=== PATIENT | male | born 1970 | race Caucasian/White ===

== ENCOUNTER 2016-12-01 12:08 | Emergency (ER) | payer MEDICARE, OTHER ==
[2016-12-01 12:19] VITALS: BP 128/78
--- NOTE | 2016-12-01 12:37 | ER Document Report ---
ED Medical Screen (RME) - General Stated Complaint: EAR PAIN Notes: Patient complains of left ear aching and ringing. Had sinus infection about 2 weeks ago and this is when symptoms started, but have progressively gotten worse. He has a history of tinnitus. States left ear feels like it has pressure in it and the ringing has become unbearable. Patient says he tried Debrox because he has had a history of impacted cerumen. I have greeted and performed a rapid initial assessment of this patient. A comprehensive ED assessment and evaluation of the patient, analysis of test results and completion of the medical decision making process will be conducted by additional ED providers. TRAVEL OUTSIDE OF THE [place] IN LAST 30 DAYS: No - Related Data Allergies/Adverse Reactions: No Known Allergies Allergy (Verified 12/16/14 11:11) Past Medical History - Past Medical History Cardiac Medical History: Denies: Hx Coronary Artery Disease, Hx Heart Attack, Hx Hypertension Pulmonary Medical History: Reports: Hx Asthma Denies: Hx Bronchitis, Hx COPD, Hx Pneumonia Neurological Medical History: Denies: Hx Cerebrovascular Accident, Hx Seizures GI Medical History: Reports: Hx Gastroesophageal Reflux Disease Musculoskeltal Medical History: Denies Hx Arthritis Past Surgical History: Denies: Hx Pacemaker - Immunizations Hx Diphtheria, Pertussis, Tetanus Vaccination: Yes Physical Exam - Vital signs Vitals: Temp Pulse Resp BP Pulse Ox 98.5 F 100 16 128/78 H 97 12/01/16 12:18 12/01/16 12:18 12/01/16 12:18 12/01/16 12:18 12/01/16 12:18 - HEENT Notes: No swelling noted to left auricle, nontender with palpation. Course - Vital Signs Vital signs: Temp Pulse Resp BP Pulse Ox 98.5 F 100 16 128/78 H 97 12/01/16 12:18 12/01/16 12:18 12/01/16 12:18 12/01/16 12:18 12/01/16 12:18
--- NOTE | 2016-12-01 14:20 | ER Document Report ---
HPI - HPI Patient complains to provider of: tinnitus and vertigo Pain Level: 2 Context: patient is a 46 year old male who presents with tinnitus for 3 weeks. He states that he has had these symptoms before since he has previous barotrauma from [employer]. He states that when his tinnnitus comes back in the past it usually leads to a sinus infection. He states he has been using his netipot and flonase, denies nasal drainage or sinus congestion/pain, fever, purulent drainage. denies hearing loss or changes. He does admit that he has previously required vestibular rehab PMH: PTSD, depression - DERM Skin Color: Normal Past Medical History - Social History Smoking Status: Former Smoker Chew tobacco use (# tins/day): No Frequency of alcohol use: Occasional Drug Abuse: None Family History: Reviewed & Not Pertinent Patient has homicidal ideation: No - Past Medical History Cardiac Medical History: Denies: Hx Coronary Artery Disease, Hx Heart Attack, Hx Hypertension Pulmonary Medical History: Reports: Hx Asthma Denies: Hx Bronchitis, Hx COPD, Hx Pneumonia Neurological Medical History: Denies: Hx Cerebrovascular Accident, Hx Seizures Renal/ Medical History: Denies: Hx Peritoneal Dialysis GI Medical History: Reports: Hx Gastroesophageal Reflux Disease Musculoskeltal Medical History: Denies Hx Arthritis Past Surgical History: Denies: Hx Pacemaker - Immunizations Hx Diphtheria, Pertussis, Tetanus Vaccination: Yes Vertical Provider Document - CONSTITUTIONAL Agree With Documented VS: Yes Exam Limitations: No Limitations General Appearance: WD/WN, No Apparent Distress - INFECTION CONTROL TRAVEL OUTSIDE OF THE [place] IN LAST 30 DAYS: No - HEENT HEENT: Atraumatic, Normal ENT Exam, Normocephalic. negative: Tympanic Membrane Red, Tympanic Membrane Bulging - NECK Neck: Normal Inspection. negative: Lymphadenopathy-Left, Lymphadenopathy-Right - RESPIRATORY Respiratory: Breath Sounds Normal, No Respiratory Distress, Chest Non-Tender. negative: Rales, Rhonchi, Wheezing O2 Sat by Pulse Oximetry: 97 - CARDIOVASCULAR Cardiovascular: Regular Rate, Regular Rhythm, No Murmur Pulses: Normal: Radial - NEURO Level of Consciousness: Awake, Alert, Appropriate Motor/Sensory: No Motor Deficit, No Sensory Deficit - DERM Integumentary: Warm, Dry, No Rash Course - Re-evaluation Re-evalutation: 12/01/16 16:25 Patient is a 46-year-old male who presents with at least 3 weeks of tinnitus. Overall sounds like work problem. Patient to follow up with his primary care doctor. - Vital Signs Vital signs: Temp Pulse Resp BP Pulse Ox 98.5 F 100 16 128/78 H 97 12/01/16 12:18 12/01/16 12:18 12/01/16 12:18 12/01/16 12:18 12/01/16 12:18 Discharge - Discharge Clinical Impression: Tinnitus, Vertigo Condition: Good Disposition: HOME, SELF-CARE Instructions: Vertigo (OM) Additional Instructions: -Your complaint today does not show evidence of rupture, trauma or occlusion. -Please follow up with your primary care doctor to review your medications. Prescriptions: Meclizine HCl [Antivert 12.5 mg Tablet] 12.5 mg PO BID PRN #14 tab PRN Reason: Referrals: JOSE SANCHEZ MD [ACTIVE STAFF] - Follow up as needed
== END 2016-12-01 14:33 | disposition home or self-care (01) ==
LOC: ER 12:08
DX: H93.19 Tinnitus, unspecified ear (principal); R42 Dizziness and giddiness; J45.909 Unspecified asthma, uncomplicated; Z87.828 Personal history of other (healed) physical injury and trauma; Z87.891 Personal history of nicotine dependence
CPT/HCPCS: 99282

== ENCOUNTER 2019-07-14 07:56 | Day surgery (SDC) | payer MEDICARE, OTHER ==
[2019-07-14] MEDS ORDERED: PROPOFOL INJ 200 MG/20 ML VIAL IV ONE ×2 (08:00→09:10)
[2019-07-14 09:45] VITALS: BP 121/78
--- NOTE | 2019-07-14 12:12 | Operative Report ---
Operative Report DATE OF SURGERY: 07/14/19 Operative Report: The risks, benefits and alternatives of the procedure including the risk of bleeding, perforation requiring surgery have been explained to the patient in detail and informed consent has been obtained. The patient is placed in a left, lateral decubital position. Timeout was called. Propofol medication is administered. Rectal examination is done which did not reveal any masses, tears or fissures. An Olympus videoscope was introduced into the patient's rectum. Scope was then carefully advanced all the way to the cecum. Cecum was identified by the usual anatomical landmarks of the ileocecal valve as well as the appendiceal office. Photodocumentation is obtained. Scope was then sequentially pulled back via the various segments of the colon including the ascending colon, hepatic flexure, transverse colon, splenic flexure, descending colon finding to the rectosigmoid portions of the colon. Retroflexion maneuver is performed. PREOPERATIVE DIAGNOSIS: Colorectal cancer screening POSTOPERATIVE DIAGNOSIS: Transverse colon polyp was removed via snare polypectomy and retrieved. Biopsies obtained on the right-hand side of the colon rule out collagenous colitis. Internal hemorrhoids OPERATION: Colonoscopy with snare polypectomy. Colonoscopy with biopsy SURGEON: PAT OLIVER ANESTHESIA: LMAC TISSUE REMOVED OR ALTERED: As noted above. COMPLICATIONS: None. ESTIMATED BLOOD LOSS: None. INTRAOPERATIVE FINDINGS: As noted above. PROCEDURE: Patient tolerated the procedure well. No immediate postprocedure comp occasions are noted. Patient is discharged in good condition. Discharge date 07/14/2019. Discharge diet: Regular. Discharge activity: Regular. 2 to 3-week follow-up to discuss findings. Patient is instructed to call the office or proceed to the emergency room should there be any further problems or questions. Wait on the pathology. 5-year surveillance colonoscopy.
== END 2019-07-14 09:56 | disposition home or self-care (01) ==
LOC: END 07:56
PROVIDERS: ATTEND Internal Medicine Gastroenterology
DX: Z12.11 Encounter for screening for malignant neoplasm of colon (principal); D12.3 Benign neoplasm of transverse colon; K64.8 Other hemorrhoids; Z79.51 Long term (current) use of inhaled steroids; J45.990 Exercise induced bronchospasm; J45.20 Mild intermittent asthma, uncomplicated
CPT/HCPCS: 45380; 45385; 88305 ×2; 00811; J2704; 811